=== PATIENT | female | born 1965 | race African-American/Black ===

== ENCOUNTER 2019-02-02 19:06 | Emergency (ER) | payer OTHER ==
[~2019-02-02] VITALS: Ht 167.6 cm; Wt 117.9 kg
[2019-02-02] MEDS ORDERED: ASPIR 8181 MG PO (19:49)
[2019-02-02] MEDS ORDERED: ALEVE220 MG PO (19:51)
[2019-02-02] MEDS ORDERED: PREDNISONE50 MG PO (20:41)
[2019-02-02] MEDS ORDERED: EPIPEN0.3 MG/0.1 IM (20:42)
[2019-02-02] MEDS ORDERED: TRAMADOL 50 MG50 MG PO (20:43)
[2019-02-02 21:03] VITALS: BP 146/64
--- NOTE | 2019-02-05 14:48 | EKG ---
[place] [address] ELECTROCARDIOGRAM REPORT Name: LISA YAÑEZ Room: [facility]#: [id number] Admission: 02/02/19 Attend Phys: Discharge: 02/02/19 Date of : 67 Report #: [id number] THIS REPORT FOR: //name// [facility] ED Test Date: 2019-02-02 Test Time: 19:11:36 Pat Name: LISA YAÑEZ Department: Room: Gender: F [employer]: : 1965 Requested By: Luna Church Order Number: [id number] Caitlin SCHROEDER: Alex Willett Measurements Intervals [place] Rate: 101 P: 59 MI: 158 QRS: 62 QRSD: 99 T: 15 QT: 384 QTc: 498 Interpretive Statements Sinus tachycardia Borderline prolonged QT interval Baseline wander in lead(s) V4 No previous ECG available for comparison Electronically Signed On 02-05-2019 14:48:19 CDT by Alex Willett [email or web address] <ELECTRONICALLY SIGNED> By: Alex Willett MD, [facility] 02/05/19 [id number] Alex Willett MD, FACC /EPI
== END 2019-02-02 21:04 | disposition home or self-care (01) ==
LOC: M.ERS 19:06
DX: R11.0 Nausea (principal); T39.315A Adverse effect of propionic acid derivatives, initial encounter; Y92.89 Other specified places as the place of occurrence of the external cause; I10 Essential (primary) hypertension